=== PATIENT | male | born 1960 | race Caucasian/White ===

== ENCOUNTER → 2017-02-15 | Outpatient (CLI) | payer OTHER ==
[~2017-02-15] MED LIST: CARV6.252 PO; DEXAMETHASONE 4 MG/ML, 1ML ONE; FENO160T PO; GLYCOPYRROLATE 0.4 MG/2 ML, 2ML ONE; INSU100V13 SQ-INSULIN; IRBE300T16 PO; KETOROLAC 30 MG/1 ML ONE; NEOSTIGMINE 1 MG/ML, 10ML ONE; ONDANSETRON 2MG/ML, 2ML ONE; PREG100C PO; ROCURONIUM 10 MG/ML,10ML ONE; ROSU40TA PO
[2017-02-15 10:45] LABS: BLOOD UREA NITROGEN 17 mg/dL (7-18)
[2017-02-15 10:50] LABS: ASPARTATE AMINO TRANSFERASE 25 U/L (15-37)
== END | disposition home or self-care (01) ==
LOC: STAR 09:03
PROVIDERS: ATTEND Surgery
DX: Z01.810 Encounter for preprocedural cardiovascular examination (principal); R94.31 Abnormal electrocardiogram [ECG] [EKG]; K80.10 Calculus of gallbladder with chronic cholecystitis without obstruction
CPT/HCPCS: 36415; 80053; 93005

== ENCOUNTER 2017-02-20 14:37 | Day surgery (SDC) | payer OTHER ==
[~2017-02-20] VITALS: Ht 182.9 cm; Wt 142.8 kg
[~2017-02-20 14:37] MED LIST changes: +BUPIVACAINE/PF 0.5% ONE; +CEFOTETAN 2 GM ONE; +EPINEPHRINE 1 MG/ML, 1ML ONE; +GLYCOPYRROLATE 0.2MG/1ML, 5ML ONE; -GLYCOPYRROLATE 0.4 MG/2 ML, 2ML ONE; -ROCURONIUM 10 MG/ML,10ML ONE
[2017-02-20] MEDS ORDERED: LACTATED RINGERS 1,000 ML IV SCH ×2 (15:06→22:00)
[2017-02-20 15:07] VITALS: BP 154/107
[2017-02-20] MEDS ORDERED: LIDOCAINE 1%, 2ML SQ PRN (15:30)
[2017-02-20] MEDS ORDERED: SUFentanil 50 MCG/ML, 1ML ONE (18:00)
[2017-02-20] MEDS ORDERED: SODIUM CHLORIDE 0.9% PF 10ML ONE (18:00)
[2017-02-20] MEDS ORDERED: MIDAZOLAM 1 MG/ML, 2ML ONE (18:00)
[2017-02-20] MEDS ORDERED: PROPOFOL 10 MG/ML, 20ML ONE (18:01)
[2017-02-20] MEDS ORDERED: LIDOCAINE-MPF 2% ,5ML ONE (18:01)
[2017-02-20] MEDS ORDERED: ROCURONIUM 10 MG/ML,10ML ONE (18:02)
[2017-02-20] MEDS ORDERED: NEOSTIGMINE 1 MG/ML, 10ML ONE (18:18)
[2017-02-20] MEDS ORDERED: FENTANYL PF 100 MCG/2ML IV PRN (19:30)
[2017-02-20] MEDS ORDERED: OXYcodone 5 MG/5 ML ORAL.SOL UDC PO PRN (19:30)
[2017-02-20] MEDS ORDERED: PROMETHAZINE 25 MG/ML, 1ML IV PRN (19:30)
[2017-02-20] MEDS ORDERED: MEPERIDINE/PF 25MG/0.5ML IVPush PRN (19:30)
[2017-02-20] MEDS ORDERED: ONDANSETRON 2MG/ML, 2ML IVPush PRN (19:30)
[2017-02-20] MEDS ORDERED: hydrALAzine 20 MG/ML, 1ML IV PRN (19:30)
[2017-02-20] MEDS ORDERED: LABETALOL 5MG/ML, 20ML IV PRN (19:30)
[2017-02-20] MEDS ORDERED: HYDROmorphone 1 MG/ML, 1ML IV PRN (19:30)
[2017-02-20] MEDS ORDERED: FENTANYL PF 100 MCG/2ML ONE (19:41)
[2017-02-20] MEDS ORDERED: ACETAMINOPHEN 650 MG/20.3 ML UDC ONE (19:41)
[2017-02-20] MEDS ORDERED: OXYcodone 5 MG/5 ML ORAL.SOL UDC ONE (19:42)
[2017-02-20] MEDS ORDERED: LABETALOL 5MG/ML, 20ML ONE (19:54)
[2017-02-20] MEDS ORDERED: hydrALAzine 20 MG/ML, 1ML ONE (20:05)
[2017-02-20] MEDS ORDERED: ACETAMINOPHEN 325 MG TABLET PO PRN (20:30)
[2017-02-20] MEDS ORDERED: OXYcodone/APAP 5/325MG TABLET PO PRN (22:00)
[2017-02-20] MEDS ORDERED: HYDROmorphone 2 MG/ML, 1ML IV PRN (22:00)
== END 2017-02-20 22:05 | disposition home or self-care (01) ==
LOC: OR 14:37 → 4NOR 21:29 → OR 22:05
PROVIDERS: ATTEND Surgery
DX: K80.10 Calculus of gallbladder with chronic cholecystitis without obstruction (principal); I10 Essential (primary) hypertension; E11.9 Type 2 diabetes mellitus without complications; Z79.4 Long term (current) use of insulin; Z87.39 Personal history of other diseases of the musculoskeletal system and connective tissue; Z98.890 Other specified postprocedural states
CPT/HCPCS: 47562; 82962; 88304; J0171; J0360; J1100; J1885; J2250; J2405; J2704; J2710; J3490; S0074